=== PATIENT | female | born 1975 | race Two or more races ===

== ENCOUNTER 2024-08-16 18:33 | Emergency (ER) | payer OTHER ==
[~2024-08-16] VITALS: Ht 154.9 cm; Wt 76.1 kg
--- NOTE | 2024-08-16 18:54 | ED.PDOC ---
HPI (NEURO) HPI Comments 49-year-old female with PMHx CVA x 9 presents with a chief complaint of left arm tingling x 2 hours. Patient states that she had nine strokes in one day in December 2023. At that time she presented with left-sided facial weakness and droop. Patient mentions that she was cleaning her house when onset of left arm/hand tingling began. Patient denies any neck problems or shoulder pain at this time. Patient denies any weakness of the upper or lower extremities. Patient denies this feeling like her previous strokes in the past. Chief Complaint: Left Sided Weakness Time Seen by MD: 18:43 Primary Care Provider: unknown Reviewed Notes: Medications, Allergies Information Source: Patient Mode of Arrival: Ambulatory Severity: Moderate Dizziness/Weakness Severity: Does not affect activitie Headache Severity: None Timing: Hours Duration: Since onset Prehospital treatment: None Numbness Location: (L) Arm Onset: With light exertion Circumstances: Spontaneous History of: CVA Vital Signs Vital Signs Date Time Temp Pulse Resp B/P (MAP) Pulse Ox O2 Delivery O2 Flow Rate FiO2 08/16/24 20:38 69 16 98 Room Air* 0 21 08/16/24 20:36 98.4 110/63 (79) 98.4 Physical Exam General: Awake, alert and oriented. No acute distress. Skin: Skin in warm, dry and intact. Appropriate color for ethnicity. HEENT: The head is normocephalic and atraumatic. Conjunctivae are clear without exudates or hemorrhage. Sclera is non-icteric. EOM are intact. No signs of nystagmus. Eyelids are normal in appearance without swelling or lesions. Oral mucosa is pink and moist Neck: The neck is supple with normal range of motion. No JVD. Cardiac: Heart rate and rhythm are normal. No murmurs, gallops, or rubs are auscultated. Respiratory: No signs of respiratory distress. Lung sounds are clear in all lobes bilaterally without rales, rhonchi, or wheezes. Abdominal: Abdomen is soft, non-tender without distention. Bowel sounds are present and normoactive in all four quadrants. Extremities: Upper and lower extremities are atraumatic in appearance without deformity or edema. Neurological: The patient is awake, alert and oriented to person, place, and time with normal speech. Speech is clear. There is no facial asymmetry. Normal piaexi-qi-[id number] test. Normal heel-vega test. Sensation intact bilaterally. Strength in upper and lower extremities intact. No upper or lower extremity drift. Psychiatric: Appropriate mood and affect. Good judgement and insight. Review of Systems: REVIEW OF SYSTEMS: No fever, no chills, or fatigue HEENT: No sore throat, no earache, no congestion, no neck pain. Cardiac: No chest pain. No palpitations. Lungs: No shortness of breath, no cough. GI: No nausea, no vomiting, no diarrhea, no constipation, no abdominal pain : No dysuria, frequency, or urgency. No hematuria. Musculoskeletal: No joint pain , no joint swelling, no extremity edema. Skin: No rash, no itching. Neuro: No headache, no dizziness, no weakness. Positive left upper extremity paresthesias Past Medical History PAST MEDICAL HISTORY: CVA Surgical History (Other): Fibroidectomy [employer] History: Uterine Fibroids Family History Family History: Unknown Social History Smoker: Non-Smoker Alcohol: Denies ETOH Use Drugs: Denies Drug Use Lives In: Home Was a procedure done? Was a procedure done?: No Differential Diagnosis (SZ) Seizure: Hyperventilation, CVA/TIA, Drug Ingestion, Hypocalcemia, Hypoglycemia, Hyponatremia, Hypoxemia, Meningitis, Other CVA: Drug Overdose General Weakness: Encephalopathy, Guillain-[place] X-Ray, Labs, Meds, VS Vital Signs Date Time Temp Pulse Resp B/P (MAP) Pulse Ox O2 Delivery O2 Flow Rate FiO2 08/16/24 20:38 69 16 98 Room Air* 0 21 08/16/24 20:36 98.4 86 18 110/63 (79) 98.4 08/16/24 18:45 76 08/16/24 18:35 97.9 78 17 114/77 (89) 100 97.9 Lab Test 08/16/24 20:32 08/16/24 19:44 Range/Units Troponin I High Sensitivity < 3 L < 3 L </=34 ng/L White Blood Count 6.5 4.4-10.8 10^3/uL Red Blood Count 4.50 4.0-5.20 10^6/uL Hemoglobin 13.7 12.2-16.2 g/dL Hematocrit 39.8 36.0-46.0 % Mean Corpuscular Volume 88.4 80.0-100.0 fL Mean Corpuscular Hemoglobin 30.5 28.0-32.0 pg Mean Corpuscular Hemoglobin Concent 34.5 32.0-36.0 g/dL Red Cell Distribution Width 14.8 H 11.8-14.3 % Platelet Count 320 140-450 10^3/uL Mean Platelet Volume 8.6 6.9-10.8 fL Neutrophils (%) (Auto) 50.8 37.0-80.0 % Lymphocytes (%) (Auto) 40.6 10.0-50.0 % Monocytes (%) (Auto) 6.7 0.0-12.0 % Eosinophils (%) (Auto) 1.4 0.0-7.0 % Basophils (%) (Auto) 0.5 0.0-2.0 % Neutrophils # (Auto) 3.3 1.6-8.6 10 ^3/uL Lymphocytes # (Auto) 2.6 0.4-5.4 10 ^3/uL Monocytes # (Auto) 0.4 0-1.3 10 ^3/uL Eosinophils # (Auto) 0.1 0-0.8 10 ^3/uL Basophils # (Auto) 0 0-0.2 10 ^3/uL Nucleated Red Blood Cells 0.2 % Prothrombin Time 10.4 9.3-11.8 sec Prothrombin Time INR 0.98 0.9-1.15 Activated Partial Thromboplast Time 27.8 24.5-34.5 SEC Sodium Level 140 136-145 mmol/L Potassium Level 3.9 3.5-5.1 mmol/L Chloride Level 106 98-107 mmol/L Carbon Dioxide Level 26 20-31 mmol/L Anion Gap 8 5-15 Blood Urea Nitrogen 13 9-23 mg/dL Creatinine 0.79 0.550-1.02 mg/dL Glomerular Filtration Rate Calc 93 >90 mL/min BUN/Creatinine Ratio 16.5 10.0-20.0 Serum Glucose 114 H 74-106 mg/dL Calcium Level 10.3 8.7-10.4 mg/dL Magnesium Level 1.8 1.6-2.6 mg/dL Total Bilirubin 0.6 0.2-1.0 mg/dL Aspartate Amino Transferase (AST) 23 13-40 U/L Alanine Aminotransferase (ALT) 33 7-40 U/L Alkaline Phosphatase 115 46-116 U/L B-Type Natriuretic Peptide 0.95 0-100 pg/mL Total Protein 7.1 5.7-8.2 g/dL Albumin 4.4 3.2-4.8 g/dL Images Reviewed?: Images reviewed and evaluated by me (Independent interpre tation of chest x-ray: No acute disease. Independent interpretation of CT head: No acute intracranial hemorrhage) Time of 1ST Reevaluation: 19:13 Reevaluation 1ST: Unchanged Patient Education/Counseling: Other (Need for admission) Family Education/Counseling: No Family Present Departure 1 Departure Time of Disposition: 22:07 Impression: Primary Impression: Stroke-like symptoms Disposition: 09 ADMITTED INPATIENT Condition: Stable Comments 49-year-old female with a history of CVA presents with left upper extremity tingling similar to previous stroke symptoms. There is no focal neuro deficit on exam. Case discussed with Dr. Stratton, Neurology who evaluated the patient. Patient is not a candidate for tPA due to minor symptoms. Recommendation is starting patient on Plavix 75 mg daily and MRI. Patient admitted to hospitalist service for further treatment, evaluation and monitoring. Extensive evaluation was performed in attempt to identify or rule out: (See differential diagnosis section) The following tests were ordered, and results were reviewed by me and discussed with patient: (See diagnostic results section) The following test were independently interpreted by me: EKG, chest x-ray, CT head I reviewed and agreed with the following test results read by other providers: Chest x-ray I reviewed the following notes from the pt's past medical encounters: N/A Additional information was gathered from interviewing the following independent historians: N/A Discussion of management or test interpretation with external physician/other qualified health nurse wound care: Dr. Stratton Addressed an acute or chronic illness that poses a threat to life or bodily function: Stroke-like symptoms Decision regarding hospitalization or escalation of hospital level of care: Risk and benefits of admission for further treatment of patient's condition was considered. Due to patient's current clinical condition, high risk of decline and poor outcome if discharged and need for further inpatient management and monitoring, patient will be admitted to the hospital. Drug therapy requiring intensive monitoring for toxicity: N/A Parenteral controlled substances: N/A Decision regarding elective major surgery with identified patient or procedure risk factors: N/A Decision regarding emergency major surgery: N/A Decision not to resuscitate or to de-escalate care because of poor prognosis: N/A Diagnosis or treatment significantly limited by social determinants of health: N/A Critical Care Note Critical Care Time?: No Stability Stability form required: No Heart Score Heart Score: Heart Score Response (Comments) Value History N/A 0 EKG N/A 0 Age N/A 0 Risk Factors N/A 0 Troponin N/A 0 Total 0 I personally scribed for TROY DE LEON MD ([email or web address]) on 08/16/24 at 18:54. Electronically submitted by Matt Gan ([email or web address]). TROY DE LEON MD August 16, 2024 18:54
--- NOTE | 2024-08-16 19:29 | DVH ---
CT STROKE CTH INDICATION: L hand L leg tingling, Hx of CVA COMPARISON: None TECHNIQUE: CT of the head without intravenous contrast. RADIATION DOSE: CTDIvol: mGy, DLP: mGy*cm FINDINGS: There is no evidence of intracranial hemorrhage, acute infarct, extra-axial collection, mass effect, midline shift, herniation or hydrocephalus. There is a small area of gliosis/old infarct measuring 10 mm in the subcortical white matter in the right frontal lobe. The ventricles, sulci and cisterns a re normal. The de la cruz-white differentiation is normal. Visualized paranasal sinuses and mastoid air marie ls are clear. Soft tissues and osseous structures are unremarkable. IMPRESSION: No acute intracranial abnormality identified. Small area of gliosis/old infarct in right frontal lobe.
--- NOTE | 2024-08-16 19:39 | DVH ---
EXAM: XY CHEST XRAY 1 VIEW TECHNIQUE: Single frontal chest radiograph CLINICAL HISTORY: Left hand tingling COMPARISON: None Findings/Impression: Frontal chest radiograph demonstrates no acute osseous or superficial soft tissue abnormalities. The trachea is midline. The cardiac silhouette and mediastinum are within normal limits. No pneumothorax, pleural effusions, or consolidations.
[2024-08-16 19:55] LABS: Basophils # (auto) 0 10 ^3/uL (0-0.2); Basophils % (auto) 0.5 % (0.0-2.0); Eosinophils # (auto) 0.1 10 ^3/uL (0-0.8); Eosinophils % (auto) 1.4 % (0.0-7.0); Hematocrit 39.8 % (36.0-46.0); Hemoglobin 13.7 g/dL (12.2-16.2); Lymphocytes # (auto) 2.6 10 ^3/uL (0.4-5.4); Lymphocytes % (auto) 40.6 % (10.0-50.0); Mean Corpuscular Hemoglobin 30.5 pg (28.0-32.0); Mean Corpuscular Hgb Conc. 34.5 g/dL (32.0-36.0); Mean Corpuscular Volume 88.4 fL (80.0-100.0); Monocytes # (auto) 0.4 10 ^3/uL (0-1.3); Monocytes % (auto) 6.7 % (0.0-12.0); Neutrophils # (auto) 3.3 10 ^3/uL (1.6-8.6); Neutrophils % (auto) 50.8 % (37.0-80.0); Nucleated Red Blood Cells % 0.2 %; Platelet Count (auto) 320 10^3/uL (140-450); Red Cell Distribution Width 14.8 % (11.8-14.3); White Blood Cell 6.5 10^3/uL (4.4-10.8)
[2024-08-16 20:10] LABS: INR 0.98 (0.9-1.15); Partial Thromboplastin Time 27.8 SEC (24.5-34.5); Prothrombin Time 10.4 sec (9.3-11.8)
[2024-08-16 20:12] LABS: Alanine Aminotransferase 33 U/L (7-40); Albumin 4.4 g/dL (3.2-4.8); Alkaline Phosphatase 115 U/L (46-116); Anion Gap 8 (5-15); Aspartate Aminotransferase 23 U/L (13-40); BUN/Creatinine Ratio 16.5 (10.0-20.0); Bilirubin, Total 0.6 mg/dL (0.2-1.0); Blood Urea Nitrogen 13 mg/dL (9-23); Calcium 10.3 mg/dL (8.7-10.4); Carbon Dioxide 26 mmol/L (20-31); Chloride 106 mmol/L (98-107); Magnesium 1.8 mg/dL (1.6-2.6); Potassium 3.9 mmol/L (3.5-5.1); Sodium 140 mmol/L (136-145); Total Protein 7.1 g/dL (5.7-8.2)
[2024-08-16 20:38] VITALS: PULSE 69; RESP 16; O2SAT 98
[2024-08-16 20:42] LABS: Glucose 114 mg/dL (74-106)
[2024-08-16] MEDS: CLOPIDOGREL BISULFATE 75 MG TAB PO ONE (22:40)
[2024-08-16] MEDS: SODIUM CHLORIDE 0.9% 1,000 ML IV ONE (22:40)
[2024-08-17] MEDS: IOHEXOL 350 MG/ML 100ML IJ ONE (00:44)
--- NOTE | 2024-08-17 02:04 | DVH ---
INDICATION: Stroke-like symptoms COMPARISON: None TECHNIQUE: CTA head with intravenous contrast. CTA neck with intravenous contrast. 3D image postpr ocessing was performed on a dedicated workstation and images were used for interpretation and reporti ng. Radiation Dose Information: CT Dose: CTDI volume is 22.4 mGy. Dose-length product is 728.14 mGy*cm FINDINGS: CTA head: No abnormality is demonstrated in the intracranial ICAs, MCAs, and ACAs. Intracranial vertebral arter ies, basilar artery, and supervisor [employer] information center are also unremarkable. Visualized intracranial venous structures are gr ossly unremarkable. CTA neck: Visualized proximal great vessels are unremarkable. Left common, internal and external carotid arteries demonstrate no abnormality. Right common, internal and external carotid arteries demonstrate no abnormality. Cervical segments of right and left vertebral arteries demonstrate no abnormality. Left dominant. Soft tissues and osseous structures are unremarkable. IMPRESSION: No abnormality demonstrated. All CT scans at this medical facility are performed using dose modulation techniques as appropriate t o a performed exam including the following: Automated exposure control was utilized; adjustment of th e MA and/or KV according to patient size; and use of iterative reconstruction technique.
[2024-08-17 07:30] VITALS: BP 106/43; PULSE 76; RESP 17; TEMP 97.8; O2SAT 99
--- NOTE | 2024-08-19 20:47 | ECG ---
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
== END 2024-08-17 07:29 | disposition short-term general hospital (02) ==
LOC: ER 18:33
DX: G93.89 Other specified disorders of brain (principal); I63.9 Cerebral infarction, unspecified; Z98.890 Other specified postprocedural states; Z79.899 Other long term (current) drug therapy
CPT/HCPCS: 36415; 70450; 70496; 70498; 71045; 80053; 82947; 83735; 83880; 84484; 85025; 85610; 85730; 96360; 99285; J7030; Q9967; 93005